=== PATIENT | female | born 1960 | race Caucasian/White ===

== ENCOUNTER 2024-09-26 20:43 | Emergency (ER) | payer BC ==
[~2024-09-26] VITALS: Ht 157.4 cm; Wt 53.8 kg
[2024-09-26] MEDS ORDERED: Tdap Vaccine 0.5 ML SYR (Adult Vaccine) IM ONE (22:55)
[2024-09-26] MEDS ORDERED: CEPHALEXIN500 M1 PO (23:06)
[2024-09-26] MEDS ORDERED: CEPHALEXIN 500 MG CAP PO ONE (23:10)
[2024-09-26] MEDS ORDERED: DERMABOND 1 EA APPL T ONE (23:15)
== END 2024-09-26 23:48 | disposition home or self-care (01) ==
LOC: ED 20:43
DX: S61.012A Laceration without foreign body of left thumb without damage to nail, initial encounter (principal); W31.2XXA Contact with powered woodworking and forming machines, initial encounter; Y93.89 Activity, other specified; Y92.89 Other specified places as the place of occurrence of the external cause; Y99.8 Other external cause status